=== PATIENT | male | born 1940 | race Caucasian/White ===

== ENCOUNTER 2019-02-06 09:43 | Inpatient (IN) | payer OTHER ==
[2019-02-06] MEDS ORDERED: ALBUTEROL 2.5 MG/3 ML NEB SOL ONE ×2 (10:25→17:21)
[2019-02-06] MEDS ORDERED: IPRATROPIUM BROM 0.5MG/2.5ML ONE ×2 (10:26→17:22)
[2019-02-06] MEDS ORDERED: LIDOCAINE VISCOUS 2% SOLN 15 ML UDC ONE (11:43)
[2019-02-06] MEDS ORDERED: NA CHLORIDE 0.9% 1,000 ML ONE (11:43)
[2019-02-06] MEDS ORDERED: CEFTRIAXONE/SWI 1gm 1 GM/10 ML SYR ONE (11:43)
--- NOTE | 2019-02-06 12:04 | RAD REPORT ---
EXAM DESCRIPTION: CT - Stone Protocol - 02/06/2019 11:53 am CLINICAL HISTORY: Hematuria, COPD, bronchitis COMPARISON: None. TECHNIQUE: Axial [address] imaging of the abdomen and pelvis was performed without IV contrast. No IV contrast was given because of allergy, abnormal renal function, patient refusal or physician re quest. No oral contrast given. All CT scans are performed using dose optimization technique as appropriate and may include automated exposure control or mA/KV adjustment according to patient size. FINDINGS: Fibrotic an obstructive lung changes are seen in each base. No acute findings seen. No per icardial thickening or effusion. The liver, spleen and pancreas show no suspicious findings on non-contrast imaging. Gallbladder and b iliary tree are also without suspicious finding. Gallstones can be occult on CT imaging. No hydronephrosis or suspicious renal mass. No significant adrenal finding. Isodense renal masses an d pyelonephritis cannot be excluded in the absence of IV contrast. Partially filled urinary bladder shows 4-5 centimeter lobulated soft tissue mass density in the poste rior bladder. This could be an neoplastic mass. Hematoma or clotted blood is certainly possible as we ll. No other finding to explain hematuria. Prostate gland is not outside of normal range. No gastric dilatation or wall thickening. No small bowel dilatation. Moderately large stool volume pr esent from cecum through sigmoid colon. Gas distention is present without obstruction in the transver se colon. Large amount of stool dilates the rectum to 8-10 cm. No free air, free fluid or inflammator y stranding. Right inguinal hernia present containing bowel loops. No active process seen. Advanced disc, bone and postsurgical changes to the skeleton. IMPRESSION: 4-5 centimeter mass in the posterior bladder could be clotted blood or a true bladder ma ss. Cystoscopy may be needed for definitive assessment. No other acute finding to explain hematuria. Large stool volume dilating the rectum to 8-10 cm. Moderate stool volume elsewhere in the colon. Full assessment is limited is the absence of IV contrast.
[2019-02-06 12:25] LABS: Absolute Lymphocytes (CBC) 0.6 K/uL (0.7-4.9); Absolute Monocytes 0.6 K/uL (0.1-1.3); Absolute Neutrophil 8.3 K/uL (1.8-8.0); Basophils % 0.3 % (0-1.3); Eosinophils % 0.2 % (0-4.4); Lymphocytes % 6.1 % (15.3-44.8); MPV 8.3 fL (7.6-11.3); Monocytes % 5.9 % (3.3-12.3); RBC Red Blood Cell Count 4.24 M/uL (4.33-5.43)
[2019-02-06 12:29] LABS: Protime INR 0.98
[2019-02-06 12:38] LABS: ALT/SGPT 24 U/L (12-78); AST/SGOT 20 U/L (15-37); Albumin 3.5 g/dL (3.4-5.0); Alkaline Phosphatase 87 U/L (45-117); BUN Blood Urea Nitrogen 23 mg/dL (7-18); Bicarbonate 25 mmol/L (21-32); Bilirubin Direct 0.1 mg/dL (0-0.2); Bilirubin Total 0.5 mg/dL (0.2-1.0); Glucose Level 88 mg/dL (74-106); Lipase 49 U/L (73-393); NT PRO-BNP 286 pg/mL (<450); Potassium 4.6 mmol/L (3.5-5.1); Protein, Total 8.1 g/dL (6.4-8.2); Sodium Level 137 mmol/L (136-145); Troponin (Emerg Dept Use Only) < 0.02 ng/mL (0.0-0.045)
--- NOTE | 2019-02-06 13:19 | ER ---
Nurse's Notes [facility] Name: Enrique Galvan Age: 79 yrs Sex: Male : 1940 Arrival Date: 02/06/2019 Time: 09:46 Bed 25 Private MD: Lawrence Galvan T Diagnosis: Hematuria;Chronic obstructive pulmonary disease, unspecified;Parkinson's disease Presentation: 02/06 10:06 Presenting complaint: Patient states: blood in urine that began yesterday. Pt was ss recently admitted in [facility] for same issue, but was not told why he was bleeding. Denies pain. Transition of care: patient was not received from another setting of care. Onset of symptoms was February 05, 2019. Risk Assessment: Do you want to hurt yourself or someone else? Patient reports no desire to harm self or others. Initial Sepsis Screen: Does the patient meet any 2 criteria? RR > 20 per min. Does the patient have a suspected source of infection? No. Patient's initial sepsis screen is negative. Care prior to arrival: None. 10:06 Method Of Arrival: Wheelchair ss 10:06 Acuity: BELA 2 ss Historical: - Allergies: 10:08 No Known Allergies; ss - PMHx: 10:08 Hypertension; COPD; Bronchitis; ss - Immunization history:: Adult Immunizations up to date. - Social history:: Smoking status: Patient/guardian denies using tobacco, but has a distant history of tobacco abuse. - Ebola Screening: : Patient denies exposure to infectious person Patient denies travel to an Ebola-affected area in the 21 days before illness onset. - Family history:: not pertinent. Screenin:52 Abuse screen: Denies threats or abuse. Denies injuries from another. Nutritional aj screening: No deficits noted. Tuberculosis screening: No symptoms or risk factors identified. Fall Risk None identified. Assessment: 10:52 General: Appears in no apparent distress. comfortable, Behavior is calm, cooperative, aj appropriate for age. Pain: Denies pain. Neuro: Level of Consciousness is awake, alert, obeys commands, Oriented to person, place, time, situation, Appropriate for age. Respiratory: Airway is patent Respiratory effort is even, unlabored, Respiratory pattern is regular, symmetrical. : Reports blood in urine. Derm: Skin is intact, is healthy with good turgor, Skin is pink, warm \T\ dry. normal. 14:24 Reassessment: Patient appears in no apparent distress at this time. No changes from previously documented assessment. Patient and/or family updated on plan of care and expected duration. Pain level reassessed. Patient states symptoms have improved. Vital Signs: 10:08 BP 148 / 93; Pulse 90; Resp 22; Temp 98.3(TE); Pulse Ox 93% on R/A; Weight 71.21 kg; Height 6 ft. 0 in. (182.88 cm); Pain 0/10; 12:34 BP 96 / 84; Pulse 84; Resp 20; Temp 98.8(O); Pulse Ox 95% on R/A; 5 14:23 BP 114 / 63; Pulse 88; Resp 21; Temp 98.4; Pulse Ox 95% on R/A; aj 10:08 Body Mass Index 21.29 (71.21 kg, 182.88 cm) ED Course: 09:46 Patient arrived in ED. mr 09:46 Lawrence Galvan MD is Private Physician. mr 10:07 Triage completed. ss 10:08 Arm band placed on right wrist. 10:12 Deanna Osuna, RN is Primary Nurse. aj 10:23 Bj Vang MD is Attending Physician. piter 10:52 Patient has correct armband on for positive identification. aj 11:53 CT Stone Protocol In Process Unspecified. EDMS 11:55 CT completed. Patient tolerated procedure well. Patient moved to CT via stretcher. Patient moved back from CT. 11:59 EKG done, by sales support technician. reviewed by Bj Vang MD. dt2 12:17 Bills cath inserted, using sterile technique, 16 Fr., by nh, balloon inflated, to gravity drainage, urine specimen collected. returned bloody urine. Patient tolerated well. Inserted saline lock: 20 gauge in left antecubital area, using aseptic technique. Blood collected. By [facility] customer support associate. 12:33 Initial lab(s) drawn, by nh, sent to lab. Inserted saline lock: 20 gauge in left 5 antecubital area, using aseptic technique. Blood collected. 13:10 XRAY Chest (1 view) In Process Unspecified. EDMS 13:18 Ephraim Santiago DO is Hospitalizing Provider. piter 14:24 No provider procedures requiring assistance completed. Patient admitted, IV remains in aj place. intact. Administered Medications: 10:18 Drug: Albuterol 2.5 mg Route: Inhalation; 10:18 Drug: AtroVENT Aerosol 0.5 mg Route: Inhalation; 12:18 Drug: NS 0.9% 1000 ml Route: IV; Rate: 125 ml/hr; Site: left antecubital; aj 14:30 Follow up: Response: No adverse reaction; IV Status: Infusion continued upon admission; IV Intake: 550ml 12:18 Drug: Viscous Lidocaine Liquid (4 %) 5 ml Route: Mucous Membrane; aj 12:18 Drug: Rocephin - (cefTRIAXone) 1 grams Route: IVPB; Infused Over: 30 mins; Site: left aj antecubital; 12:20 Follow up: Response: No adverse reaction; IV Status: Completed infusion; IV Intake: 10mlaj Intake: 12:20 IV: 10ml; Total: 10ml. aj 14:30 IV: 550ml; Total: 560ml. Outcome: 13:19 Decision to Hospitalize by Provider. [facility] 14:24 Admitted to OR accompanied by nurse, family with patient, via stretcher, with chart. aj 14:24 Condition: good 14:24 Instructed on the need for admit. 14:30 Patient left the ED. aj Signatures: Dispatcher [employer] Deanna Pitts, Bj Chavarria RN, MD MD cha Rivera, Mary mr Jones, Kourtney Clarke RN RN ss Martinez, Maria Julee Bazan Eagle
--- NOTE | 2019-02-06 13:20 | EDPHYS ---
Physician Documentation [facility] Name: Enrique Galvan Age: 79 yrs Sex: Male : 1940 Arrival Date: 02/06/2019 Time: 09:46 Bed 25 Private MD: Lawrence Galvan T ED Physician Bj Vang HPI: 02/06 11:23 This 79 yrs old Male presents to ER via Wheelchair with complaints of Urinary piter Problem. 11:23 The patient presents with urinary symptoms, urinary frequency, gross blood, piter uncircumcised. Historical: - Allergies: 10:08 No Known Allergies; ss - PMHx: 10:08 Hypertension; COPD; Bronchitis; ss - Immunization history:: Adult Immunizations up to date. - Social history:: Smoking status: Patient/guardian denies using tobacco, but has a distant history of tobacco abuse. - Ebola Screening: : Patient denies exposure to infectious person Patient denies travel to an Ebola-affected area in the 21 days before illness onset. - Family history:: not pertinent. ROS: 11:23 Constitutional: Negative for fever, chills, and weight loss, Eyes: Negative for injury, piter pain, redness, and discharge, ENT: Negative for injury, pain, and discharge, Neck: Negative for injury, pain, and swelling, Cardiovascular: Negative for chest pain, palpitations, and edema, Respiratory: Negative for shortness of breath, cough, wheezing, and pleuritic chest pain, Abdomen/GI: Negative for abdominal pain, nausea, vomiting, diarrhea, and constipation, Back: Negative for injury and pain, MS/Extremity: Negative for injury and deformity, Skin: Negative for injury, rash, and discoloration, Neuro: Negative for headache, weakness, numbness, tingling, and seizure, Psych: Negative for depression, anxiety, suicide ideation, homicidal ideation, and hallucinations, Allergy/Immunology: Negative for hives, rash, and allergies, Endocrine: Negative for neck swelling, polydipsia, polyuria, polyphagia, and marked weight changes, Hematologic/Lymphatic: Negative for swollen nodes, abnormal bleeding, and unusual bruising. 11:23 : Positive for hematuria. Exam: 11:23 Constitutional: This is a well developed, well nourished patient who is awake, alert, piter and in no acute distress. Head/Face: Normocephalic, atraumatic. Eyes: Pupils equal round and reactive to light, extra-ocular motions intact. Lids and lashes normal. Conjunctiva and sclera are non-icteric and not injected. Cornea within normal limits. Periorbital areas with no swelling, redness, or edema. ENT: Nares patent. No nasal discharge, no septal abnormalities noted. Tympanic membranes are normal and external auditory canals are clear. Oropharynx with no redness, swelling, or masses, exudates, or evidence of obstruction, uvula midline. Mucous membranes moist. Neck: Trachea midline, no thyromegaly or masses palpated, and no cervical lymphadenopathy. Supple, full range of motion without nuchal rigidity, or vertebral point tenderness. No Meningismus. Chest/axilla: Normal chest wall appearance and motion. Nontender with no deformity. No lesions are appreciated. Cardiovascular: Regular rate and rhythm with a normal S1 and S2. No gallops, murmurs, or rubs. Normal PMI, no JVD. No pulse deficits. Back: No spinal tenderness. No costovertebral tenderness. Full range of motion. Skin: Warm, dry with normal turgor. Normal color with no rashes, no lesions, and no evidence of cellulitis. MS/ Extremity: Pulses equal, no cyanosis. Neurovascular intact. Full, normal range of motion. Psych: Awake, alert, with orientation to person, place and time. Behavior, mood, and affect are within normal limits. 11:23 Respiratory: mild respiratory distress is noted, Respirations: normal, Breath sounds: rhonchi, wheezing: expiratory 11:23 : Male external genitalia: normal, no abrasion, Bladder: is normal, gross hematuria. 11:31 Neuro: Orientation: is normal, appropriate for stated age, no acute changes, Mentation: piter is normal, appropriate for stated age, no acute changes, Memory: is normal, appropriate for stated age, no acute changes, Cranial nerves: grossly normal, is grossly normal based on the patient's age, no acute changes, Cerebellar function: no acute changes, Motor: moves all fours, Sensation: no obvious gross deficits, appropriate no acute changes, Gait: not tested. Babinski testing is normal, intention tremor, seizure activity, is not displayed by the patient. Vital Signs: 10:08 BP 148 / 93; Pulse 90; Resp 22; Temp 98.3(TE); Pulse Ox 93% on R/A; Weight 71.21 kg; ss Height 6 ft. 0 in. (182.88 cm); Pain 0/10; 12:34 BP 96 / 84; Pulse 84; Resp 20; Temp 98.8(O); Pulse Ox 95% on R/A; mh5 14:23 BP 114 / 63; Pulse 88; Resp 21; Temp 98.4; Pulse Ox 95% on R/A; aj 10:08 Body Mass Index 21.29 (71.21 kg, 182.88 cm) ss MDM: 10:23 Patient medically screened. [facility] 11:31 Data reviewed: vital signs, nurses notes, lab test result(s), EKG, radiologic studies, [facility] CT scan, plain films. 02/06 11:23 Order name: Basic Metabolic Panel; Complete Time: 12:41 [facility] 02/06 11:23 Order name: CBC with Diff [facility] 02/06 11:23 Order name: LFT's; Complete Time: 12:41 [facility] 02/06 11:23 Order name: Magnesium; Complete Time: 12:41 [facility] 02/06 11:23 Order name: NT PRO-BNP; Complete Time: 12:41 [facility] 02/06 11:23 Order name: PT-INR; Complete Time: 12:35 [facility] 02/06 11:23 Order name: Troponin (emerg Dept Use Only); Complete Time: 12:41 [facility] 02/06 11:23 Order name: XRAY Chest (1 view) [facility] 02/06 11:23 Order name: Lipase; Complete Time: 12:41 [facility] 02/06 12:12 Order name: UA bd 02/06 13:29 Order name: Manual Differential [facility] 02/06 13:30 Order name: Urine Culture iw 02/06 13:33 Order name: Urine Microscopic Only [facility] 02/06 11:23 Order name: EKG; Complete Time: 11:24 [facility] 02/06 11:23 Order name: Cardiac monitoring; Complete Time: 12:19 [facility] 02/06 11:23 Order name: EKG - Nurse/Tech; Complete Time: 12:19 [facility] 02/06 11:23 Order name: IV Saline Lock; Complete Time: 12:19 [facility] 02/06 11:23 Order name: Labs collected and sent; Complete Time: 12:19 [facility] 02/06 11:23 Order name: O2 Per Protocol; Complete Time: 12:19 [facility] 02/06 11:23 Order name: O2 Sat Monitoring; Complete Time: 12:19 [facility] 02/06 11:23 Order name: CT Stone Protocol; Complete Time: 12:35 [facility] 02/06 11:23 Order name: Bills; Complete Time: 12:18 [facility] Administered Medications: 10:18 Drug: Albuterol 2.5 mg Route: Inhalation; 10:18 Drug: AtroVENT Aerosol 0.5 mg Route: Inhalation; 12:18 Drug: NS 0.9% 1000 ml Route: IV; Rate: 125 ml/hr; Site: left antecubital; 14:30 Follow up: Response: No adverse reaction; IV Status: Infusion continued upon admission; IV Intake: 550ml 12:18 Drug: Viscous Lidocaine Liquid (4 %) 5 ml Route: Mucous Membrane; 12:18 Drug: Rocephin - (cefTRIAXone) 1 grams Route: IVPB; Infused Over: 30 mins; Site: left aj antecubital; 12:20 Follow up: Response: No adverse reaction; IV Status: Completed infusion; IV Intake: 10mlaj Disposition: 02/06/19 13:19 Hospitalization ordered by Ephraim Santiago for Inpatient Admission. Preliminary diagnosis are Hematuria, Chronic obstructive pulmonary disease, unspecified, Parkinson's disease. - Bed requested for Telemetry/MedSurg (Inpatient). - Status is Inpatient Admission. aj - Condition is Fair. - Problem is new. - Symptoms have improved. UTI on Admission? Yes Signatures: Dispatcher [employer] EDDE Deanna Osuna RN RN aj Anderson, Corey, MD MD cha Smirch, Shelby, RN RN ss Corrections: (The following items were deleted from the chart) 13:48 13:31 UA MICROSCOPIC+U.LAB.BRZ ordered. [facility] EDDE 14:30 13:19 Hospitalization Ordered by Ephraim Santiago DO for Inpatient Admission. Preliminary aj diagnosis is Hematuria; Chronic obstructive pulmonary disease, unspecified; Parkinson's disease. Bed requested for Telemetry/MedSurg (Inpatient). Status is Inpatient Admission. Condition is Fair. Problem is new. Symptoms have improved. UTI on Admission? Yes. [facility]
--- NOTE | 2019-02-06 13:24 | RAD REPORT ---
EXAM DESCRIPTION: RAD - Chest Single View - 02/06/2019 1:10 pm CLINICAL HISTORY: COUGH Chest pain. COMPARISON: Chest Single View dated 05/11/2016; Chest Single View dated 05/08/2016; Chest Single View da dennis 05/03/2016; Chest Single View dated 04/26/2016 FINDINGS: Portable technique limits examination quality. Advanced emphysematous changes are present throughout the lungs. Small right pleural effusion noted. The heart is normal in size. No displaced fractures.Tortuous thoracic aorta. IMPRESSION: Advanced emphysema.
[2019-02-06 13:31] LABS: Urine Appearance TURBID; Urine Blood 3+ (NEG); Urine Color RED; Urine Glucose NEGATIVE (NEG); Urine Microscopic Reflex ORDER UMIC; Urine Protein 3+ (NEG); Urine Specific Gravity 1.025 (1.005-1.030)
[2019-02-06 13:33] LABS: Urine Bilirubin 3+ (NEG)
[2019-02-06 13:46] LABS: Urine Bacteria >50 /HPF (NONE SEEN); Urine Culture Reflex Order REFLEXED; Urine RBC TNTC /HPF (NONE SEEN)
--- NOTE | 2019-02-06 14:00 | P.HP ---
Certification for Inpatient Patient admitted to: Inpatient With expected LOS: >2 Midnights Patient will require the following post-hospital care: None Practitioner: I am a practitioner with admitting privileges, knowledge of patient current condition, hospital course, and medical plan of care. Services: Services provided to patient in accordance with Admission requirements found in Title 42 Section 412.3 of the Code of Federal Regulations Patient History Date of Service: 02/06/19 Primary Care Provider: Dr. Galvan Reason for admission: Gross hematuria History of Present Illness: 79-year-old male presented to the emergency room with gross hematuria. Patient reports gross hematuria since Wednesday. This stopped then returned. Patient also reports that he was recently evaluated at [facility] for hematuria on January 27. Ultrasounds were done at that time. No intervention was required. Patient was to follow up with urology in [place], [place]. Due to the gross hematuria patient came in to the ER for further evaluation. Patient denied any fever, chills, shortness of breath. Patient with underlying COPD, hypertension and hypothyroidism. In the ER patient was evaluated. Hemoglobin 12.6, white count 9.5. Urinalysis showed gross hematuria. Bills catheter was placed. CT scan shows a 4.5 cm soft tissue density in the posterior bladder. This may be clot versus mass. No hydronephrosis noted. Patient was admitted for further evaluation. When I saw the patient the ER, he appeared comfortable. Bills catheter in place. Urology to see patient soon for likely intervention. Allergies No Known Allergies Allergy (Verified 05/05/16 07:44) Home medications list reviewed: Yes Home Medications: Ipratropium/Albuterol Sulfate [Iprat-Albut 0.5-3(2.5) mg/3 ml] 3 ml IH Q6H PRN 04/27/16 Ensure High Protein 237 ml PO BID can 05/01/16 Loperamide [Imodium*] 2 mg PO Q6H PRN #0 cap 05/01/16 Apixaban [Eliquis *] 2.5 mg PO BID #60 tablet 05/19/16 Baclofen [Lioresal*] 10 mg PO BIDP PRN #60 tab 05/19/16 Docusate/Senna [Senokot-S*] 2 tab PO BEDTIME PRN #60 tab 05/19/16 Fluticasone/Salmeterol [Advair 250/50 Diskus*] 1 puff IH BID #1 disk 05/19/16 Furosemide [Lasix*] 20 mg PO DAILY #30 tab 05/19/16 Hydrocodone 10/APAP 325 [[place]bra 10/325*] 1 tab PO Q4H PRN #60 tab 05/19/16 Iron/FA/Vit B-Com W/C [Hemocyte Plus*] 1 tab PO BIDWM #60 tab 05/19/16 Levothyroxine [Synthroid*] 0.05 mg PO HIUOL0AR #30 tablet 05/19/16 Losartan Potassium [Cozaar*] 25 mg PO DAILY #30 tablet 05/19/16 Magnesium Oxide [Mag 0X*] 400 mg PO BID #60 tab 05/19/16 traMADol HCL [Ultram*] 50 mg PO Q6H PRN #60 tab 05/19/16 Roflumilast [Daliresp] 500 mcg PO DAILY #30 tablet 05/20/16 predniSONE [Deltasone] 10 mg PO DAILY #20 tab 05/20/16 - Past Medical/Surgical History Diabetic: No -: Hypertension -: COPD -: Hypothyroidism -: History of asbestosis exposure -: Tremors -: Chronic back pain -: Back surgery Psychosocial/ Personal History: Patient lives at home. - Family History Brother -: Cancer Father -: Heart disease, Hypertension - Social History Smoking Status: Never smoker Alcohol use: No CD- Drugs: No Caffeine use: No Place of Residence: Home Review of Systems General: Unremarkable Eyes: Unremarkable ENT: Unremarkable Respiratory: Unremarkable Cardiovascular: Unremarkable Gastrointestinal: Unremarkable Genitourinary: Hematuria, As per HPI Musculoskeletal: Unremarkable Integumentary: Unremarkable Neurological: As per HPI (Tremors) Lymphatics: Unremarkable Physical Examination - Physical Exam General: Alert, In no apparent distress, Oriented x3, Cooperative HEENT: Atraumatic, Normocephalic, Other (Dry mucous membranes) Respiratory: Clear to auscultation bilaterally, Normal air movement Cardiovascular: Normal pulses, Regular rate/rhythm Gastrointestinal: Normal bowel sounds, Soft and benign, Non-distended, No tenderness, No masses, No rebound, No guarding Musculoskeletal: No erythema, No tenderness, No warmth Integumentary: No tenderness/swelling, No erythema, No warmth, No cyanosis, Other (Mild tremors at resting) Neurological: Normal speech, Normal strength at 5/5 x4 extr, Normal tone, Normal affect Urinary: Bills catheter, Other (Bills catheter in place. Gross hematuria noted. ) - Studies Laboratory Data (last 24 hrs) 02/06/19 12:04: PT 11.6, INR 0.98 02/06/19 12:04: WBC 9.5, Hgb 12.6 L, Hct 38.0 L, Plt Count 346 02/06/19 12:04: Sodium 137, Potassium 4.6, BUN 23 H, Creatinine 1.05, Glucose 88 , Magnesium 2.0, Total Bilirubin 0.5, AST 20, ALT 24, Alkaline Phosphatase 87, Lipase 49 L Assessment and Plan - Plan Impression: Gross hematuria with noted CT scan showing 4.5 cm soft tissue density likely clot versus mass UTI Hypertension Hypothyroidism COPD Essential tremors Plan: Gross hematuria with noted CT scan showing 4.5 cm soft tissue density likely clot versus mass: Patient to be admitted for further evaluation. Case discussed with urology. Urology will evaluate patient. Patient will need surgical intervention. This will likely occur soon. Bills catheter in place. Patient will likely require irrigation. Continue IV antibiotic therapy and IV fluids. Will monitor hemoglobin closely. Await findings from cystoscopy. Patient will likely need to be monitored closely over the next 24-48 hr. May need to wait on urine culture results prior to discharge. Await further recommendations from neurology. I will turn the service over to Dr. Gill tomorrow. I will go over the plan of care with her. UTI: IV antibiotics started. Continue as above. Hypertension: Blood pressure slightly low at this time. Hold blood pressure medication. Will continue to monitor closely. Hypothyroidism: Continue home medication. COPD: Provide COPD medication. Essential tremors: Overall stable. Will recommend patient be further evaluated as an outpatient by neurology. There is a family history of Parkinson 's. Discharge Plan: Home Plan to discharge in: 48 Hours - Advance Directives Does patient have a Living Will: No Does patient have a Durable POA for Healthcare: Yes - Code Status/Comfort Care Code Status Assessed: Yes (Patient is full code.) Time Spent Managing Pts Care (In Minutes): 55
[2019-02-06] MEDS ORDERED: Ringers Lactate 1,000 ML IV ONE ×2 (14:49→16:53)
[2019-02-06] MEDS ORDERED: PROPOFOL 200 MG/20 ML VIAL IV ONE (14:51)
[2019-02-06] MEDS ORDERED: LIDOCAINE 1% MPF 5 ML VIAL ONE (14:51)
[2019-02-06] MEDS ORDERED: FENTANYL CITR 100 MCG/2 ML ONE ×2 (14:51→16:09)
--- NOTE | 2019-02-06 15:16 | EKG ---
Test Date: 2019-02-06 Test Time: 11:59:26 Clamper: JUMANA MEASUREMENT RESULTS: Intervals: Rate: 86 SC: 138 QRSD: 70 QT: 388 QTc: 464 Stephan: P: 91 SC: 138 QRS: -48 T: 74 INTERPRETIVE STATEMENTS: Normal sinus rhythm Left anterior fascicular block Abnormal ECG Compared to ECG 04/26/2016 19:19:29 Left anterior fascicular block now present Electronically Signed On 02-06-19 15:15:36 CDT by Ramakrishna Jones
[2019-02-06] MEDS ORDERED: ROCURONIUM 50 MG/5 ML VIAL IV ONE (15:27)
[2019-02-06] MEDS ORDERED: EPHEDRINE SULF 50 MG/ML VIAL ONE (15:28)
[2019-02-06] MEDS ORDERED: HYDRALAZINE HCL 20 MG/ML VIAL IV PRN (16:49)
[2019-02-06] MEDS: NA CHLORIDE 0.9% 1,000 ML IV SCH (16:49)
[2019-02-06] MEDS ORDERED: ACETAMINOPHEN 500 MG TAB PO PRN (16:49)
[2019-02-06] MEDS ORDERED: ONDANSETRON 4 MG/2 ML VIAL IV PRN (16:49)
[2019-02-06 17:54] VITALS: BMI 21.2
[2019-02-06 18:11] LABS: Anisocytosis 1+; Blood Morphology Comment NOTED (NOT SEEN); Platelet Estimate ADEQ
[2019-02-06] MEDS ORDERED: PNEUMOCOCCAL VACCINE 0.5 ML IMVAC ONE (19:00)
[2019-02-06] MEDS ORDERED: SODIUM CHL 0.9% IRR SOLN 2000 ML IRR SCH (19:00)
--- NOTE | 2019-02-06 19:17 | CON ---
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 It was discussed with his primary care. However, on 01/25 to 01/27 of this year, [place] [facility] [place]. He was sent home and told to be worked up as an outpatient. At that time, they tried to put a 3-way catheter, but was unable to be passed, so they were not able to irrigate him out. He came in today with gross hematuria again. His daughter is present with him. He denies any prostate, bladder, or kidney issues in the past. Allergies: NO KNOWN DRUG ALLERGIES. Past Medical History: Hypertension, COPD, bronchitis. Past Surgical History: Back surgery and hip surgery. Immunizations: Up-to-date. Social History: Smoking status: Smokes in the past, but not recently. Ebola screen negative. Review of Systems: Ten-point review of systems otherwise negative. Physical Examination: Vital Signs: Blood pressure 148/93, pulse 90, respirations 22, temperature 98.3 , pulse ox 93% on room air. Weight is 71 kg, height 6 feet 0 inches. Pain 0/ 10. HEENT: Atraumatic, normocephalic Lungs: clear. Heart: S1 and S2. Abdomen: Soft, nontender. He is wearing a diaper with some bloody urine now. Laboratories: Shows a CBC 9.5, H and H is 12.6 and 38.0, platelet 346. Coagulation studies shows PT 11.6, INR 0.98. Chemistry shows sodium 137, potassium 4.6, chloride 102, carbon dioxide 25, BUN 23, creatinine 1.0, GFR 68, glucose 88, calcium normal at 9.2, magnesium normal 2.09, direct bilirubin, LFTs normal. Urine study shows 3+ blood, nitrite positive, esterase 3+, in most account likely greater than 50. The patient is on IV antibiotics preoperatively. Assessment: Gross hematuria and soft tissue mass in the bladder. Could be clot versus tumor. He needs a cystoscopy, clot evacuation, fulguration of whatever is bleeding. 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 ANUJ/BROCK Voice ID: [id number] Report ID: [id number] MTDD
[2019-02-06] MEDS: ARFORMOTEROL TARTRATE 15 MCG/2 ML VIAL.NEB NEB SCH (20:00)
[2019-02-07] MEDS: NACL 0.9% IRR SOLN 2,000 ML IRR SCH ×2 (00:55→03:34)
[2019-02-07] MEDS: NA CHLORIDE 0.9% 1,000 ML IV SCH ×3 (03:33→19:54)
[2019-02-07 04:53] LABS: Absolute Lymphocytes (CBC) 0.8 K/uL (0.7-4.9); Absolute Monocytes 0.7 K/uL (0.1-1.3); Absolute Neutrophil 5.8 K/uL (1.8-8.0); Basophils % 0.5 % (0-1.3); Hematocrit 30.2 % (39.6-49.0); Lymphocytes % 11.4 % (15.3-44.8); MPV 8.3 fL (7.6-11.3); Monocytes % 9.3 % (3.3-12.3); RBC Red Blood Cell Count 3.36 M/uL (4.33-5.43)
[2019-02-07 05:06] LABS: Magnesium 1.8 mg/dL (1.8-2.4)
[2019-02-07] MEDS ORDERED: MAGNESIUM SULFATE 1 gm IVPB 1 GM/100 ML BAG IV ONE (05:17)
[2019-02-07] MEDS: LEVOTHYROXINE SOD 0.05 MG TABLET PO SCH ×2 (06:24→06:25)
[2019-02-07] MEDS: CEFTRIAXONE/SWI 1gm 1 GM/10 ML SYR IV SCH (08:17)
[2019-02-07] MEDS: IPRATROPIUM BROM 0.5MG/2.5ML NEB PRN ×3 (08:25→19:50)
[2019-02-07] MEDS: ARFORMOTEROL TARTRATE 15 MCG/2 ML VIAL.NEB NEB SCH ×2 (08:25→20:00)
[2019-02-07] MEDS: ALBUTEROL 2.5 MG/3 ML NEB SOL NEB PRN ×2 (08:25→12:46)
[2019-02-07] MEDS ORDERED: CEFTRIAXONE 1 GM/NS 50 ML 1 GM/50 ML BAG IV SCH (09:00)
[2019-02-07] MEDS ORDERED: mitoMYcin 40 MG/50 ML SWI SYR IRR ONE (14:00)
--- NOTE | 2019-02-07 15:00 | P.PN ---
Subjective Date of Service: 02/07/19 Primary Care Provider: Dr. Galvan Chief Complaint: Gross hematuria Patient seen and examined at bedside with RN. Chart reviewed. Case discussed with urology at this time. Patient is currently status post cystoscopy with clot evacuation tomorrow removal. Currently is with continuous bladder irrigation going well overall no complaints to offer overnight as well. Review of Systems 10-point ROS is otherwise unremarkable Physical Examination - Vital Signs Temperature: 99.1 F Blood Pressure: 101/56 Pulse: 70 Respirations: 18 Pulse Ox (%): 94 - Physical Exam General: Alert, In no apparent distress HEENT: Atraumatic, PERRLA, EOMI Neck: Supple, JVD not distended Respiratory: Clear to auscultation bilaterally, Normal air movement Cardiovascular: Regular rate/rhythm, Normal S1 S2 Gastrointestinal: Normal bowel sounds, No tenderness Musculoskeletal: No tenderness Integumentary: No rashes Neurological: Normal speech, Normal tone, Normal affect Lymphatics: No axilla or inguinal lymphadenopathy - Studies Medications List Reviewed: Yes Assessment And Plan - Current Problems (Diagnosis) (1) Gross hematuria Current Visit: Yes Status: Acute Plan: Gross Hematuria which is now Resolved. -patient is currently status post cystoscopy with clot evacuation and team are resection. -currently getting continuous bladder irrigation -plan for Bills catheter removal and 24 hr -neurology on board appreciated recommendations at this time (2) COPD (chronic obstructive pulmonary disease) Current Visit: Yes Status: Chronic Qualifiers: COPD type: chronic bronchitis (3) Hypertension Current Visit: No Status: Chronic Qualifiers: Hypertension type: essential hypertension Qualified Code(s): I10 - Essential (primary) hypertension - Plan Pending clinical improvement at this time. Discharge Plan: Home Plan to discharge in: 48 Hours - Code Status/Comfort Care Code Status Assessed: Yes Critical Care: No
--- NOTE | 2019-02-07 19:44 | PN ---
Subjective: The patient is doing well. His urine is clear. Came by and gave him the mitomycin C 40 mg in 40 cc sterile water. Catheter was clamped for an hour, patient to rotate q 15 minutes. Then the nurse will drain it. Change the bag out and give him new bag and the patient can go home tonight or tomorrow to have his catheter removed in the morning. ANUJ/BROCK Voice ID: [id number] Report ID: [id number]
[2019-02-08 04:39] LABS: Magnesium 2.1 mg/dL (1.8-2.4); Potassium 4.3 mmol/L (3.5-5.1)
[2019-02-08] MEDS: LEVOTHYROXINE SOD 0.05 MG TABLET PO SCH (05:36)
[2019-02-08] MEDS: CEFTRIAXONE/SWI 1gm 1 GM/10 ML SYR IV SCH (08:08)
[2019-02-08] MEDS: ARFORMOTEROL TARTRATE 15 MCG/2 ML VIAL.NEB NEB SCH (08:15)
[2019-02-08] MEDS: IPRATROPIUM BROM 0.5MG/2.5ML NEB PRN ×2 (08:15→13:00)
[2019-02-08] MEDS: ALBUTEROL 2.5 MG/3 ML NEB SOL NEB PRN ×2 (08:15→13:00)
[2019-02-08] MEDS: NA CHLORIDE 0.9% 1,000 ML IV SCH (08:49)
[2019-02-08 09:27] VITALS: O2SAT 93
[2019-02-08 12:03] VITALS: BP 126/56; TEMP 99.9
--- NOTE | 2019-02-08 12:46 | P.DS ---
Admission Date: 02/06/19 Discharge Date: 02/08/19 Primary Care Provider: Dr. Galvan Disposition: ROUTINE DISCHARGE Discharge Condition: GOOD Reason for Admission: Gross hematuria Consultations: Urology Procedures: Cystoscopy- with clot evacuation and bladder tumor resection - Problems (1) Gross hematuria Current Visit: Yes Status: Acute (2) COPD (chronic obstructive pulmonary disease) Current Visit: Yes Status: Chronic Qualifiers: COPD type: chronic bronchitis (3) Hypertension Current Visit: No Status: Chronic Qualifiers: Hypertension type: essential hypertension Qualified Code(s): I10 - Essential (primary) hypertension Brief History of Present Illness: 79-year-old male presented to the emergency room with gross hematuria. Patient reports gross hematuria since Wednesday. This stopped then returned. Patient also reports that he was recently evaluated at [facility] for hematuria on January 27. Ultrasounds were done at that time. No intervention was required. Patient was to follow up with urology in [place], [place]. Due to the gross hematuria patient came in to the ER for further evaluation. Patient denied any fever, chills, shortness of breath. Patient with underlying COPD, hypertension and hypothyroidism. In the ER patient was evaluated. Hemoglobin 12.6, white count 9.5. Urinalysis showed gross hematuria. Bills catheter was placed. CT scan shows a 4.5 cm soft tissue density in the posterior bladder. This may be clot versus mass. No hydronephrosis noted. Patient was admitted for further evaluation. When I saw the patient the ER, he appeared comfortable. Bills catheter in place. Urology to see patient soon for likely intervention. Hospital Course: Overall during the hospital stay patient remained stable Patient was initially admitted to the hospital for gross hematuria. Urology was consulted. Patient had Bills catheter placed by neurology and was started on continuous bladder irrigation. Patient then was taken to cystoscopy by urology. Patient had cystoscopy done with clot evacuation and transurethral bladder tumor resection done. Patient was continued on bladder irrigation 24 hr post cystoscopy. Patient had no further gross hematuria noted. Hemoglobin did remain stable while here in the hospital. Pathology was pending. Patient was able to ambulate and tolerate his diet and did well overall postprocedure. Patient at that time was discharged home per urology is recommendation and was asked to follow up with urology in about 1-2 days post discharge. Patient will be followed up with pathology results by urology as well. Vital Signs/Physical Exam: Temp Pulse Resp BP Pulse Ox 99.9 F 73 24 H 126/56 L 93 02/08/19 12:00 02/08/19 12:00 02/08/19 12:00 02/08/19 12:00 02/08/19 12:00 General: Alert, In no apparent distress HEENT: Atraumatic, PERRLA, EOMI Neck: Supple, JVD not distended Respiratory: Clear to auscultation bilaterally, Normal air movement Cardiovascular: Regular rate/rhythm, Normal S1 S2 Gastrointestinal: Normal bowel sounds, No tenderness Musculoskeletal: No tenderness Integumentary: No rashes Neurological: Normal speech, Normal tone, Normal affect Lymphatics: No axilla or inguinal lymphadenopathy Laboratory Data at Discharge: WBC 7.4 K/uL (4.3-10.9) D 02/07/19 04:22 Hgb 10.0 g/dL (13.6-17.9) L D 02/07/19 04:22 Hct 30.2 % (39.6-49.0) L D 02/07/19 04:22 Plt Count 227 K/uL (152-406) D 02/07/19 04:22 PT 11.6 SECONDS (9.5-12.5) 02/06/19 12:04 INR 0.98 02/06/19 12:04 Sodium 144 mmol/L (136-145) 02/08/19 03:58 Potassium 4.3 mmol/L (3.5-5.1) 02/08/19 03:58 BUN 14 mg/dL (7-18) 02/08/19 03:58 Creatinine 0.97 mg/dL (0.55-1.3) 02/08/19 03:58 Glucose 83 mg/dL (74-106) 02/08/19 03:58 Magnesium 2.1 mg/dL (1.8-2.4) 02/08/19 03:58 Total Bilirubin 0.5 mg/dL (0.2-1.0) 02/06/19 12:04 AST 20 U/L (15-37) 02/06/19 12:04 ALT 24 U/L (12-78) 02/06/19 12:04 Alkaline Phosphatase 87 U/L (45-117) 02/06/19 12:04 Lipase 49 U/L (73-393) L 02/06/19 12:04 Home Medications: Ipratropium/Albuterol Sulfate [Iprat-Albut 0.5-3(2.5) mg/3 ml] 3 ml IH Q6H PRN 04/27/16 Levothyroxine [Synthroid*] 0.05 mg PO [id number] #30 tablet 05/19/16 Losartan Potassium [Cozaar*] 25 mg PO DAILY #30 tablet 05/19/16 Patient Discharge Instructions: Please f.u with PCP and Urology in 1 to 2 week post discharge. No new medication. You were admitted to the hosptial for Gross hematuria and was found to have Clot in the bladder which was removed with cystoscopy and you also had bladder mass removed and sent to pathology. Please f.u with urology regarding the pathology results. Diet: Regular Activity: Ad sher Followup: Lawrence Galvan MD [Primary Care Provider] - (Primary Care Provider. Follow up in 1-2 weeks, call for appointment. ) Nickolas Booker MD [ACTIVE - CAN ADMIT] - (Urologist. Follow up in 1 week, call for appointment.)
== END 2019-02-08 14:11 | disposition home health service (06) | DRG 669 ==
LOC: ER 09:43 → ERHOLD 13:41 → 4TH 17:04
PROVIDERS: ADMIT Family Medicine; ATTEND Family Medicine
PROC: 0TCB8ZZ Extirpation of Matter from Bladder, Via Natural or Artificial Opening Endoscopic (ICD-10-PCS; 2019-02-06)
PROC: 0TBB8ZZ Excision of Bladder, Via Natural or Artificial Opening Endoscopic (ICD-10-PCS; principal; 2019-02-06 14:00)
DX: C67.4 Malignant neoplasm of posterior wall of bladder (principal); N39.0 Urinary tract infection, site not specified; I10 Essential (primary) hypertension; J44.9 Chronic obstructive pulmonary disease, unspecified; E03.9 Hypothyroidism, unspecified; Z77.090 Contact with and (suspected) exposure to asbestos; G25.0 Essential tremor; Z87.891 Personal history of nicotine dependence
CPT/HCPCS: 36415; 51702; 71045; 74176; 76377; 80048; 80076; 81003; 81015; 83690; 83735; 83880; 84484; 85025; 85610; 87040; 87086; 87088; 88305; 88307; 93005; 96361; 96365; 96367; 96374; 99285; J0696; J2704; J3010; J3475; J7030; J7605; J9280